=== PATIENT | male | born 1960 | race Hispanic/Latino ===

== ENCOUNTER 2020-10-24 11:01 | Emergency (ER) | payer OTHER ==
[~2020-10-24] VITALS: Ht 175.3 cm; Wt 93.6 kg
[2020-10-24] MEDS ORDERED: METFORMIN HCL500 M2 PO (11:51)
[2020-10-24] MEDS ORDERED: NAPROSYN500 MG PO (12:03)
[2020-10-24] MEDS ORDERED: METHOCARBAMOL750 MG PO (12:05)
[2020-10-24] MEDS ORDERED: ULTRAM 50MG50 MG PO (12:07)
[2020-10-24 12:23] VITALS: BP 124/89
== END 2020-10-24 12:21 | disposition home or self-care (01) ==
LOC: FSED 11:30
DX: S13.4XXA Sprain of ligaments of cervical spine, initial encounter (principal); M54.5 Low back pain; V43.52XA Car driver injured in collision with other type car in traffic accident, initial encounter; Y92.488 Other paved roadways as the place of occurrence of the external cause; E11.9 Type 2 diabetes mellitus without complications; E78.5 Hyperlipidemia, unspecified
CPT/HCPCS: 99283